=== PATIENT | female | born 1990 | race Caucasian/White ===

== ENCOUNTER 2017-10-14 16:38 | Emergency (ER) | payer SELFPAY ==
[2017-10-14 16:51] VITALS: BP 137/86
[2017-10-14] MEDS ORDERED: ALBUTEROL SULFATE HFA (90 MCG/PUFF) 8 GM MDI (1 MDI/ER DISP) IH ONE (17:15)
--- NOTE | 2017-10-14 17:32 | RADIOLOGY REPORT (SQ) ---
EXAM DESCRIPTION: CHEST 2 VIEWS COMPLETED DATE/TIME: 10/14/2017 5:19 pm REASON FOR STUDY: cough, wheezing COMPARISON: None. EXAM PARAMETERS: NUMBER OF VIEWS: two views TECHNIQUE: Digital Frontal and Lateral radiographic views of the chest acquired. RADIATION DOSE: NA LIMITATIONS: none FINDINGS: LUNGS AND PLEURA: Patchy right middle lobe airspace disease. Lungs otherwise clear. No p leural effusion or pneumothorax. MEDIASTINUM AND HILAR STRUCTURES: No masses or contour abnormalities. HEART AND VASCULAR STRUCTURES: Heart normal size. No evidence for failure. BONES: No acute findings. HARDWARE: None in the chest. OTHER: No other significant finding. IMPRESSION: PATCHY RIGHT MIDDLE LOBE AIRSPACE DISEASE SUSPICIOUS FOR PNEUMONIA. TECHNICAL DOCUMENTATION: JOB ID: [id number] [employer]- All Rights Reserved Reading location - IP/workstation name: [email or web address]
--- NOTE | 2017-10-14 17:44 | ER Document Report ---
ED General - General Chief Complaint: Sore throat/ cough Stated Complaint: COUGH,SORE THROAT Time Seen by Provider: 10/14/17 16:54 Mode of Arrival: Ambulatory Information source: Patient TRAVEL OUTSIDE OF THE [place] IN LAST 30 DAYS: No - HPI Notes: Patient is a 27-year-old smoker presents with report of a cough for approximately a month. The patient states she has had a mild pharyngitis and has had exposure to strep from her daughters. The patient reports scant wheezing and states cough is worse at night. She denies any leg swelling or chest pain or fever or neck stiffness or abdominal pain or constipation or diarrhea or dysuria. No skin rash. No significant difficulty swallowing. Cough is productive of mildly yellowish phlegm. - Related Data Allergies/Adverse Reactions: No Known Allergies Allergy (Unverified 10/14/17 16:45) Past Medical History - General Information source: Patient - Social History Smoking Status: Current Every Day Smoker Chew tobacco use (# tins/day): No Frequency of alcohol use: None Drug Abuse: None Lives with: Alone Family History: None Patient has suicidal ideation: No Patient has homicidal ideation: No Renal/ Medical History: Denies: Hx Peritoneal Dialysis Review of Systems - Review of Systems Notes: REVIEW OF SYSTEMS: CONSTITUTIONAL : Denies fever, chills, or sweats. EENT: Denies eye, ear, or mouth pain or symptoms. Denies tongue, or mouth swelling or difficulty swallowing. CARDIOVASCULAR: Denies chest pain. Denies palpitations or racing or irregular heart beat. Denies ankle edema. RESPIRATORY: Mild wheezing in the. GASTROINTESTINAL: Denies abdominal pain or distention. Denies nausea, vomiting , or diarrhea. Denies blood in vomitus, stools, or per rectum. Denies black, tarry stools. Denies constipation. GENITOURINARY: Denies difficulty urinating, painful urination, burning, frequency, blood in urine, or discharge. FEMALE GENITOURINARY: Denies vaginal bleeding, heavy or abnormal periods, irregular periods. Denies vaginal discharge or odor. MUSCULOSKELETAL: Denies back or neck pain or stiffness. Denies joint pain or swelling. SKIN: Denies rash, lesions or sores. HEMATOLOGIC : Denies easy bruising or bleeding. LYMPHATIC: Denies swollen, enlarged glands. NEUROLOGICAL: Denies confusion or altered mental status. Denies passing out or loss of consciousness. Denies dizziness or lightheadedness. Denies headache. Denies weakness or paralysis or loss of use of either side. Denies problems with gait or speech. Denies sensory loss, numbness, or tingling. Denies seizures. PSYCHIATRIC: Denies anxiety or stress. Denies depression, suicidal ideation, or homicidal ideation. ALL OTHER SYSTEMS REVIEWED AND NEGATIVE. Dictation was performed using [employer] voice recognition software Physical Exam - Vital signs Vitals: Temp Pulse Resp BP Pulse Ox 98.8 F 99 18 137/86 H 97 10/14/17 16:47 10/14/17 16:47 10/14/17 16:47 10/14/17 16:47 10/14/17 16:47 - Notes Notes: PHYSICAL EXAMINATION: GENERAL: Well-appearing, well-nourished and in no acute distress. HEAD: Atraumatic, normocephalic. EYES: Pupils equal round and reactive to light, extraocular movements intact, conjunctiva are normal. ENT: Moist mucous membranes. Nose shows minimal coryza. Posterior pharynx shows no abscess, but there may be mild tonsillar erythema. No exudate. NECK: Normal range of motion, supple without lymphadenopathy LUNGS: Coarse breath sounds with scant wheezing noted. No accessory muscle use or retraction. No Rales. HEART: Regular rate and rhythm without murmurs ABDOMEN: Soft, nontender, nondistended abdomen. No guarding, no rebound. No masses appreciated. Female : deferred Musculoskeletal: Normal range of motion, no pitting or edema. No cyanosis. NEUROLOGICAL: Cranial nerves grossly intact. Normal speech, normal gait. Normal sensory, motor exams PSYCH: Normal mood, normal affect. SKIN: Warm, Dry, normal turgor, no rashes or lesions noted. Course - Re-evaluation Re-evalutation: 10/14/17 17:48 Patient was counseled at length about the need to quit smoking. Patient was given albuterol metered-dose inhaler. Chest x-ray showed evidence for pneumonia and mild diaphragmatic flattening. Chest x-ray findings were shared with the patient and a copy of the report was given. Patient was counseled about the need for a follow-up chest x-ray to ensure that the infiltrative findings resolved, as I cannot exclude a carcinomatous process given the smoking history. Augmentin will be written which could also cover for strep. - Vital Signs Vital signs: Temp Pulse Resp BP Pulse Ox 98.8 F 99 18 137/86 H 97 10/14/17 16:47 10/14/17 16:47 10/14/17 16:47 10/14/17 16:47 10/14/17 16:47 Discharge - Discharge Clinical Impression: Pneumonia Qualifiers: Pneumonia type: due to unspecified organism Laterality: right Lung location: middle lobe of lung Qualified Code(s): J18.1 - Lobar pneumonia, unspecified organism Asthma Qualifiers: Asthma severity: mild Asthma persistence: intermittent Asthma complication type : unspecified Qualified Code(s): J45.20 - Mild intermittent asthma, uncomplicated Condition: Stable Disposition: HOME, SELF-CARE Instructions: Asthma (PENDING SALE TO [facility]), Family Physicians / Practices, Pneumonia (PENDING SALE TO [facility]) Additional Instructions: You need a follow-up chest x-ray in 4 months to make sure the pneumonia has cleared. Prescriptions: Albuterol Sulfate [Proair HFA Inhalation Aerosol 8.5 gm MDI] 2 puff IH Q4H PRN # 1 mdi PRN Reason: Amox Tr/Potassium Clavulanate [Augmentin 875-125 Tablet] 1 tab PO BID 10 Days tablet Forms: Smoking Cessation Education
== END 2017-10-14 17:51 | disposition home or self-care (01) ==
LOC: ER 16:38
DX: J18.1 Lobar pneumonia, unspecified organism (principal); J45.20 Mild intermittent asthma, uncomplicated; F17.200 Nicotine dependence, unspecified, uncomplicated
CPT/HCPCS: 99283; 71046; J3490